=== PATIENT | male | born 1965 | race Hispanic/Latino ===

== ENCOUNTER → 2024-03-08 | Day surgery (SDC) | payer OTHER ==
[2024-03-05 09:48] LABS: BASOPHILS % 0.4 % (0.0-1.0); EOSINOPHILS # (AUTO) 0.1 (0.0-0.4); EOSINOPHILS % 0.9 % (0.0-6.0); HEMOGLOBIN 16.9 g/dL (14.0-18.0); LYMPHOCYTES # (AUTO) 2.6 (1.0-3.2); LYMPHOCYTES % 22.9 % (18.0-39.1); MEAN CORPUSCULAR HEMOGLOBIN 28.6 pg (28-32); MEAN CORPUSCULAR HGB CONC 31.3 g/dL (31-35); MEAN CORPUSCULAR VOLUME 91.5 fL (81-99); MONOCYTES # (AUTO) 1.6 (0.2-0.8); MONOCYTES % 14.1 % (4.4-11.3); NEUTROPHILS # (AUTO) 6.8 (2.1-6.9); NEUTROPHILS % 61.3 % (38.7-80.0); PLATELET COUNT 221 x10e3/uL (140-360); RED CELL DISTRIBUTION WIDTH 13.6 % (11.7-14.4); WHITE BLOOD COUNT 11.12 x10e3/uL (4.8-10.8)
[2024-03-05 10:08] LABS: ALBUMIN 4.1 g/dL (3.5-5.0); ALBUMIN/GLOBULIN RATIO 1.2 (0.8-2.0); ANION GAP 12.8 mmol/L (8-16); BILIRUBIN,TOTAL 0.8 mg/dL (0.2-1.2); CALCIUM 10.1 mg/dL (8.4-10.2); CREATININE, SERUM 0.98 mg/dL (0.72-1.25); POTASSIUM 3.8 mmol/L (3.5-5.1); TOTAL PROTEIN 7.5 g/dL (6.5-8.1)
[~2024-03-08] MED LIST: ACETAMINOPHEN 1000 MG/100 ML 100 ML IV ONE; AMOX TR-K CLV1 EAC1; BUPIVACAINE 0.5%/EPI 30 ML SDV INJ ONE; DEXAMETHASONE SOD PHOS INJ 4 MG/ML SDV ONE; ESMOLOL HCL 100MG/10ML 10 MG/ML VIAL ONE; FENTANYL CITRATE/PF 100MCG/2 ML INJ ONE; KETAMINE HCL INJ 50 MG/ML 10 ML VIAL ONE; LIDOCAINE HCL 2% LOCAL INJ 5 ML SDV VIAL INJ ONE; MIDAZOLAM HCL 2 MG/2 ML VIAL ONE; ONDANSETRON HCL INJ 2MG/ML 2ML 2 MG/ML VIAL ONE; PROPOFOL IV EMULSION 10 MG/ML 20 ML VIAL ONE; SODIUM CHLORIDE 0.9% INJ 10 ML VIAL ONE
[2024-03-08] MEDS: LACTATED RINGER'S 1,000 ML ONE (06:24)
[2024-03-08] MEDS: MIDAZOLAM HCL 2MG/ML ORAL LIQ CUP ONE (06:50)
[2024-03-08 09:47] VITALS: TEMP 97.6
[2024-03-08 11:00] VITALS: BP 156/89; PULSE 83; RESP 18; O2SAT 98
[2024-03-08] MEDS: ONDANSETRON HCL INJ 2MG/ML 2ML 2 MG/ML VIAL ONE (11:00)
== END | disposition home or self-care (01) ==
LOC: OR 06:11
PROVIDERS: ATTEND Surgery
DX: R22.2 Localized swelling, mass and lump, trunk (principal); Q90.9 Down syndrome, unspecified; R73.03 Prediabetes; Z01.810 Encounter for preprocedural cardiovascular examination; Z01.812 Encounter for preprocedural laboratory examination; Z01.818 Encounter for other preprocedural examination
CPT/HCPCS: 21931; 36415; 71046; 80053; 85025; 88304; 93005; J0131; J1100; J2003; J2250; J2405; J2704; J7121